=== PATIENT | female | born 1990 | race Caucasian/White ===

== ENCOUNTER 2017-12-12 10:53 | Inpatient (IN) ==
--- NOTE | 2017-12-12 11:25 | ED ---
History of Present Illness Primary Care Physician: No Primary Care Physician History of Present Illness: HPI: 27-year-old at 40+4 weeks presents to the emergency room with regular contractions happening every 5 minutes and lasting for 1-2 minutes that started last night at 8 PM. Patient went to [facility] last night and was discharged stating that she was not in labor. She then went to her OB provider this morning, had a cervical check and said that she was at 4 cm and in active labor. She was sent to the emergency department for admission for active labor. She confirms leakage of fluid that started last night. She confirms a bloody show. Denies any vaginal bleeding. Patient has felt movements. care: Seen by Dr. Carroll starting at 34 weeks. Late care. Patient has had an uncomplicated course. No UTIs. Denies a diagnosis of Gestational diabetes and preeclampsia. 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 PMH: Asthma FHx: Denies any defects, CF, twins, DM Allergies: Latex Meds: vitamins. Albuterol Social history: No tobacco, alcohol or drug abuse. Review of Systems All other systems reviewed negative except as stated in HPI [facility] - Medical History Medical History: Medical History (Last Updated 12/10/17 @ 14:40 by Prince Rawls MD) Asthma Medications and Allergies Allergies Allergy/AdvReac Type Severity Reaction Status Date / Time latex Allergy Severe Rash Verified 12/12/17 12:50 Home Medications Medication Instructions Recorded Confirmed Type albuterol sulfate 1 puff INHALATION Q4-6H PRN 12/10/17 12/12/17 History vit,[id number] 1 tab PO DAILY 12/10/17 12/12/17 History [PNV 29-1] Exam Vital signs: Intake & Output 12/11/17 12/12/17 12/12/17 18:59 06:59 18:59 Weight 106.594 kg Narrative: GENERAL: Well-nourished, well-developed patient. SKIN: Warm and dry. HEAD: Normocephalic and atraumatic. EYES: No scleral icterus. No injection or drainage. CARDIOVASCULAR: Regular rate and rhythm without murmurs, gallops, or rubs. RESPIRATORY: Breath sounds equal bilaterally. No accessory muscle use. ABDOMEN/GI: Abdomen soft, non-tender, bowel sounds present, no rebound, no guarding Gravid to 40 weeks size GENITOURINARY: External Genitalia: intact and normal in appearance Cervix: anterior Dilatation: 5cm Effacement: 100 Station: -2 Presentation: cephalic Membranes: intact Uterine Contractions: [-] FHT's: Category: 1 Baseline: 130 bpm Reactive: yes Variability: moderate Decels: none EXTREMITIES: No cyanosis, +1 edema NEUROLOGICAL: Awake and alert. Normal speech. Results - Labs CBC & Chem 7: 12/12/17 11:35 Assessment and Plan - Diagnosis (1) 41 weeks gestation of Code(s): Z3A.41 - 41 weeks gestation of Status: Acute (2) Active labor at term Status: Acute - Plan 27 year old at 40+4 presents in active labor for . -Cervical check: 5/100/-2 -Admit to labor and delivery: anticipate today. -Epidural for Pain -[place]/EFM -Cervical Checks q4 -GBS Negative. No intervention -discussed with Dr. Montoya Discharge Plan - Physicians Team Primary Care Provider: Primary Care Luz Dye Attending Provider: João Woodard
[2017-12-12] MEDS ORDERED: Sodium Chlor 0.9% Inj 500 ML IV.SIG PRN (11:29)
[2017-12-12] MEDS ORDERED: Naloxone Inj 0.4 MG/ML Vial IV.PUSH PRN (11:29)
[2017-12-12] MEDS ORDERED: Sod Chloride 0.9% Inj 1,000 ML IV.CONT PRN (11:29)
[2017-12-12] MEDS ORDERED: fentaNYL Citrate Inj 100 MCG/2 ML Ampul IV.PUSH PRN ×2 (11:29)
[2017-12-12] MEDS ORDERED: Oxytocin 30 Units/500ml Premix 30 UNITS/500 ML BAG IV.SIG ONE (11:29)
[2017-12-12] MEDS ORDERED: Citric Acid/Sodium Citrate Liq 30 ML UDC PO SCH (11:30)
[2017-12-12 12:24] LABS: Baso # (Auto) 0.1 th/mm3 (0.0-0.2); Baso % (Auto) 0.5 % (0.0-2.0); Eos % (Auto) 0.2 % (0.0-4.0); Hematocrit 38.5 % (35.0-46.0); Hemoglobin 12.2 gm/dL (11.6-15.3); Lymph # (Auto) 1.6 th/mm3 (1.0-4.8); Lymph % (Auto) 10.2 % (9.0-44.0); Mean Corpuscular HGB Conc 31.7 % (32.0-36.0); Mean Corpuscular Hemoglobin 23.7 pg (27.0-34.0); Mean Corpuscular Volume 74.6 fL (80.0-100.0); Mean Platelet Volume 9.2 fL (7.0-11.0); Mono # (Auto) 0.7 th/mm3 (0.0-0.9); Mono % (Auto) 4.5 % (0.0-8.0); Neut # (Auto) 13.1 th/mm3 (1.8-7.7); Neut % (Auto) 84.6 % (16.0-70.0); Platelet Count 419 th/mm3 (150-450); Red Blood Count 5.16 mil/mm3 (4.00-5.30); Red Cell Distribution Width 22.9 % (11.6-17.2); White Blood Count 15.5 th/mm3 (4.0-11.0)
[2017-12-12] MEDS ORDERED: fentaNYL 2MCG-Bupiv 0.125% Epi 150 ML EPIDURAL ONE (12:27)
[2017-12-12] MEDS ORDERED: Lidocaaine 1.5%/Epinephrine 1:200,000 PF Inj 5 ML Amp ONE (12:39)
[2017-12-12] MEDS ORDERED: Lidocaine PF 1% Inj 5 ML Vial ONE (12:39)
[2017-12-12] MEDS ORDERED: Labetalol HCl Inj 100 MG/20 ML Vial IV.PUSH ONE (13:22)
[2017-12-12] MEDS ORDERED: Labetalol HCl Inj 100 MG/20 ML Vial ONE (13:23)
[2017-12-12 15:24] LABS: Alkaline Phosphatase 190 U/L (45-117); Total Protein 7.6 g/dL (6.4-8.2)
[2017-12-12 15:30] LABS: Alanine Aminotransferase 16 U/L (10-53); Albumin 2.7 g/dL (3.4-5.0); Anion Gap 13 meq/L (5-15); Aspartate Aminotransferase 25 U/L (15-37); Blood Urea Nitrogen 8 mg/dL (7-18); Calcium 9.3 mg/dL (8.5-10.1); Carbon Dioxide 22.2 meq/L (21.0-32.0); Chloride 106 meq/L (98-107); Glomerular Filtration Rate Greater Than 89 mL/min (>89); Glucose,Random 79 mg/dL (74-106); Sodium 141 meq/L (136-145); Uric Acid 6.6 mg/dl (2.6-6.0)
[2017-12-12] MEDS ORDERED: fentaNYL Citrate Inj 100 MCG/2 ML Ampul EPIDURAL ONE (15:43)
[2017-12-12] MEDS: fentaNYL 2MCG-Bupiv 0.125% Epi 150 ML EPIDURAL PRN ×2 (16:20→23:11)
[2017-12-12] MEDS ORDERED: Oxytocin 30 Units/500ml Premix 30 UNITS/500 ML BAG IV.SIG PRN ×2 (16:27)
--- NOTE | 2017-12-12 16:47 | P.OBLABOR ---
Subjective Interval history: S: Patient seen and examined at bedside. She is lying comfortably, not feeling any contractions. Patient received epidural earlier this morning. Objective Vital Signs: Vital Signs - 8 hr 12/12/17 11:24 12/12/17 11:28 12/12/17 13:10 Temperature 98.7 F Pulse Rate 97 H 85 Respiratory Rate Blood Pressure 162/104 H 157/94 H 12/12/17 14:10 12/12/17 14:55 12/12/17 15:10 Temperature Pulse Rate 91 H 101 H 90 Respiratory Rate Blood Pressure 125/68 118/68 131/97 H 12/12/17 15:25 12/12/17 15:30 12/12/17 16:31 Temperature 98.2 F Pulse Rate 104 H 96 H 97 H Respiratory Rate 18 Blood Pressure 122/86 119/83 Objective: Pelvic Exam: Cervix: anterior Dilatation: 6cm Effacement: 100 Station: 0 Presentation: cephalic Membranes: AROM Uterine Contractions: nondetectable on [employer] Assessment and Plan - Diagnosis (1) 41 weeks gestation of Code(s): Z3A.41 - 41 weeks gestation of Status: Acute (2) Active labor at term Status: Acute - Plan 27 year old at 40+4 admitted in active labor for . -AROM -Cervical Check: 100/0 -EFM/[employer]: Nonresponsive. IUPC Placed. -If no Contractions: Will start Pitocin 2-2-30. -Continue to Monitor. -Anticipate . -Discussed with
[2017-12-12 17:36] LABS: Bacteria,Urine Moderate /hpf; Bilirubin,Urine Negative (Negative); Clarity,Urine Hazy (Clear); Color,Urine Yellow (Yellw/Straw); Glucose,Urine (UA) Negative (Negative); Hyaline Casts,Urine 1 /lpf (0-3); Leukocyte Esterase,Urine Large (Negative); Mucus,Urine Few /lpf (Occasional); Nitrite,Urine Negative (Negative); Specific Gravity,Urine 1.008 (1.002-1.035); Squamous Epithelial Cell,Urine <1 /hpf (0-5)
[2017-12-12 17:37] LABS: Amphetamine Urine With Conf Neg (Neg); Benzodiazepine Urine With Conf Neg (Neg)
[2017-12-13] MEDS ORDERED: Lidocaine 1% Inj 50 ML Vial ONE (03:59)
[2017-12-13] MEDS ORDERED: Acetaminophen 325 MG Tablet PO PRN (04:43)
[2017-12-13] MEDS ORDERED: Bisacodyl 10 MG Supp RECTAL PRN (04:43)
[2017-12-13] MEDS ORDERED: Zolpidem Tartrate 5 MG Tablet PO PRN (04:43)
[2017-12-13] MEDS ORDERED: Naloxone Inj 0.4 MG/ML Vial IV.PUSH PRN (04:43)
[2017-12-13] MEDS ORDERED: Benzocaine 20% Top Spray 60 ML Can TOPICAL PRN (04:43)
[2017-12-13] MEDS ORDERED: Witch Hazel 50%/Glyderin 12.5% 40 Pad Jar RECTAL PRN (04:43)
[2017-12-13] MEDS ORDERED: Oxytocin 30 Units/500ml Premix 30 UNITS/500 ML BAG IV.CONT PRN (04:43)
--- NOTE | 2017-12-13 04:50 | P.OBDELI ---
Weeks Gestation: 40 Patient Started Active Labor: Yes Active Labor Start Date: 12/12/17 Active Labor Start Time: 07:00 Medical Induction of Labor: No Artificial Rupture of Membrane: Yes Artificial ROM Date: 12/12/17 Artificial ROM Time: 15:00 Anesthesia: Epidural, Lidocaine local to perineum, Other Episiotomy: none Vaginal Delivery: Vacuum Presentation: Occiput anterior Nuchal Cord: x1 Delayed Cord Clamping (45 sec): Yes Placenta: Spontaneous delivery Laceration: Vaginal, Perineal, 2 deg Repair: Chromic interrupted, Vicryl interrupted Estimated blood loss (mL): 250 Infant: Female Additional Information: 8/9 3205 gm
--- NOTE | 2017-12-13 07:43 | P.HPOB ---
History of Present Illness Primary Care Physician: No Primary Care Physician History of Present Illness: HPI: 27-year-old at 40+4 weeks presents to the emergency room with regular contractions happening every 5 minutes and lasting for 1-2 minutes that started last night at 8 PM. Patient went to [facility] last night and was discharged stating that she was not in labor. She then went to her OB provider this morning, had a cervical check and said that she was at 4 cm and in active labor. She was sent to the emergency department for admission for active labor. She confirms leakage of fluid that started last night. She confirms a bloody show. Denies any vaginal bleeding. Patient has felt movements. care: Seen by Dr. Carroll starting at 34 weeks. Late care. Patient has had an uncomplicated course. No UTIs. Denies a diagnosis of Gestational diabetes and preeclampsia. 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 PMH: Asthma FHx: Denies any defects, CF, twins, DM Allergies: Latex Meds: vitamins. Albuterol Social history: No tobacco, alcohol or drug abuse. Review of Systems All other systems reviewed negative except as stated [facility] Medical History Medical History: Medical History (Last Updated 12/10/17 @ 14:40 by Prince Rawls MD) Asthma Medications and Allergies Allergies Allergy/AdvReac Type Severity Reaction Status Date / Time latex Allergy Severe Rash Verified 12/12/17 12:50 Home Medications Medication Instructions Recorded Confirmed Type albuterol sulfate 1 puff INHALATION Q4-6H PRN 12/10/17 12/12/17 History vit,[id number] 1 tab PO DAILY 12/10/17 12/12/17 History [PNV 29-1] Exam Vital signs: Intake & Output 12/11/17 12/12/17 12/12/17 18:59 06:59 18:59 Weight 106.594 kg Narrative: GENERAL: Well-nourished, well-developed patient. SKIN: Warm and dry. HEAD: Normocephalic and atraumatic. EYES: No scleral icterus. No injection or drainage. CARDIOVASCULAR: Regular rate and rhythm without murmurs, gallops, or rubs. RESPIRATORY: Breath sounds equal bilaterally. No accessory muscle use. ABDOMEN/GI: Abdomen soft, non-tender, bowel sounds present, no rebound, no guarding Gravid to 40 weeks size GENITOURINARY: External Genitalia: intact and normal in appearance Cervix: anterior Dilatation: 5cm Effacement: 100 Station: -2 Presentation: cephalic Membranes: intact Uterine Contractions: [-] FHT's: Category: 1 Baseline: 130 bpm Reactive: yes Variability: moderate Decels: none EXTREMITIES: No cyanosis, +1 edema NEUROLOGICAL: Awake and alert. Normal speech. Results - Labs CBC & Chem 7: 12/12/17 11:35 Assessment and Plan - Diagnosis (1) 41 weeks gestation of Code(s): Z3A.41 - 41 weeks gestation of Status: Acute (2) Active labor at term Status: Acute - Plan 27 year old at 40+4 presents in active labor for . -Cervical check: 5100/-2 -Admit to labor and delivery: anticipate today. -Epidural for Pain -[place]/EFM -Cervical Checks q4 -GBS Negative. No intervention -discussed with Dr. Montoya
[2017-12-13] MEDS: Senna/Docusate Sodium 8.6/50 MG Tablet PO SCH (08:19)
[2017-12-13] MEDS: Prenatal Vit/Ca/Iron/Folic Acid Tablet PO SCH (08:19)
[2017-12-13] MEDS ORDERED: Ferrous Sulfate 325 MG Tablet PO SCH (09:00)
--- NOTE | 2017-12-13 10:16 | P.PNOB ---
Subjective Interval history: Patient is a 27 year-old delivered at 40 weeks and 4 days. Patient is day 0 after . Patient's pain is well-controlled. Patient reports eating and drinking without any nausea or vomiting. Patient reports minimal bleeding. Patient has not passed gas and had no bowel movements. Patient is walking without lower extremity pain or shortness of breath. Patient reports desire for contraception and breast-feeding. Objective Vital Signs/I&O: Vital Signs 12/12/17 11:24 12/12/17 11:28 12/12/17 13:10 Temperature 98.7 F Pulse Rate 97 H 85 Respiratory Rate Blood Pressure 162/104 H 157/94 H 12/12/17 14:10 12/12/17 14:55 12/12/17 15:10 Temperature Pulse Rate 91 H 101 H 90 Respiratory Rate Blood Pressure 125/68 118/68 131/97 H 12/12/17 15:25 12/12/17 15:30 12/12/17 16:31 Temperature 98.2 F Pulse Rate 104 H 96 H 97 H Respiratory Rate 18 Blood Pressure 122/86 119/83 12/12/17 16:40 12/12/17 16:46 12/12/17 17:01 Temperature Pulse Rate 98 H 100 H 96 H Respiratory Rate Blood Pressure 120/75 120/77 131/58 L 12/12/17 17:30 12/12/17 17:31 12/12/17 17:46 Temperature 98.1 F Pulse Rate 96 H 100 H Respiratory Rate 20 Blood Pressure 142/88 H 131/91 H 12/12/17 18:01 12/12/17 18:16 12/12/17 18:31 Temperature Pulse Rate 117 H 104 H 105 H Respiratory Rate Blood Pressure 131/89 145/88 H 138/76 12/12/17 18:46 12/12/17 19:46 12/12/17 20:01 Temperature Pulse Rate 103 H 111 H 103 H Respiratory Rate Blood Pressure 134/87 136/97 H 139/92 H 12/12/17 20:18 12/12/17 20:29 12/12/17 20:31 Temperature 99.6 F Pulse Rate 107 H 105 H Respiratory Rate 17 Blood Pressure 142/80 H 142/88 H 12/12/17 20:45 12/12/17 21:01 12/12/17 21:30 Temperature Pulse Rate 105 H 115 H 107 H Respiratory Rate Blood Pressure 148/85 H 125/74 140/88 12/12/17 21:46 12/12/17 22:00 12/12/17 22:15 Temperature Pulse Rate 106 H 115 H 107 H Respiratory Rate Blood Pressure 134/85 135/76 134/89 12/12/17 22:28 12/12/17 23:00 12/13/17 00:05 Temperature 98.5 F Pulse Rate 110 H 108 H Respiratory Rate 15 17 Blood Pressure 133/86 151/84 H 12/13/17 00:16 12/13/17 00:30 12/13/17 01:46 Temperature 98.8 F Pulse Rate 116 H 116 H 114 H Respiratory Rate 15 Blood Pressure 159/91 H 159/95 H 154/86 H 12/13/17 02:01 12/13/17 02:16 12/13/17 03:05 Temperature Pulse Rate 116 H 126 H 135 H Respiratory Rate Blood Pressure 113/81 129/87 12/13/17 03:31 12/13/17 03:50 12/13/17 04:07 Temperature Pulse Rate 138 H 126 H 128 H Respiratory Rate Blood Pressure 12/13/17 04:18 12/13/17 04:31 12/13/17 04:46 Temperature 99.1 F Pulse Rate 127 H 115 H 118 H Respiratory Rate 20 20 Blood Pressure 158/90 H 143/73 H 142/80 H 12/13/17 04:51 12/13/17 05:01 12/13/17 05:15 Temperature Pulse Rate 115 H 124 H Respiratory Rate 19 Blood Pressure 116/69 139/76 12/13/17 05:31 12/13/17 05:45 12/13/17 08:00 Temperature 99.0 F Pulse Rate 128 H 112 H Respiratory Rate 14 24 Blood Pressure 147/70 H 145/83 H Intake & Output 12/12/17 12/13/17 12/13/17 18:59 06:59 18:59 Intake Total 1000 / 1000 Balance 1000 / 1000 Weight 106.594 kg Intake: IV 1000 / 1000 LR 1000 mL Inj 1,000 ML @ 125 1000 / 1000 mls/hr IV.CONT .Q8H [facility] Rx#: [id number] Other: Weight On Admission 235 kg Result Diagrams: 12/12/17 11:35 12/12/17 11:35 Objective Remarks: GENERAL: Well-nourished, well-developed patient. CARDIOVASCULAR: Regular rate and rhythm without murmurs, gallops, or rubs. RESPIRATORY: Breath sounds equal bilaterally. No accessory muscle use. ABDOMEN/GI: Abdomen soft, non-tender. Fundus: Firm, non-tender at umbilicus. GENITOURINARY: Light to moderate bleeding. EXTREMITIES: No cyanosis or edema, non-tender, without signs of DVT. 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 Stop: 12/16/17 11:29 Diphtheria/Pertussis/Tetanus Vacc (Boostrix Vaccine Inj) 0.5 ml IM .ONCE ONE Stop: 12/13/17 16:01 Fentanyl Citrate (Fentanyl Inj) 50 mcg IV.PUSH Q1H PRN PRN Reason: Pain Scale 3 - 5 Fentanyl Citrate (Fentanyl Inj) 100 mcg IV.PUSH Q1H PRN PRN Reason: PAIN SCALE 6 TO 10 Last Admin: 12/12/17 12:02 Dose: 100 mcg Oxytocin (Pitocin 30 Units/Ns 500 Ml Premix) 30 units in 500 mls @ 100 mls/hr IV.CONT UNSCH PRN PRN Reason: Heavy bleeding Ibuprofen (Motrin) 800 mg PO Q8H PRN PRN Reason: For Cramping Last Admin: 12/13/17 05:39 Dose: 800 mg Lactulose (Lactulose Liq) 30 ml PO DAILY PRN PRN Reason: SEVERE CONSITIPATION Measles/Mumps/Rubella Vaccine Live (M-M-R Ii Vaccine Inj) 0.5 ml SQ .ONCE ONE Stop: 12/13/17 16:01 Naloxone HCl (Narcan Inj) 0.1 mg IV.PUSH Q2M PRN PRN Reason: for opiate reversal Ondansetron HCl (Zofran Odt) 4 mg PO Q6H PRN PRN Reason: NAUSEA OR VOMITING Oxycodone/Acetaminophen (Percocet 5/325 Mg) 1 tab PO Q4H PRN PRN Reason: PAIN SCALE 3 TO 5 Vit/Calcium/Iron/Folic Ac (Stuartnatal Plus 3) 1 tab PO DAILY [facility] Last Admin: 12/13/17 08:19 Dose: 1 tab Senna/Docusate Sodium (Eva-Colace) 1 tab PO BID [facility] Last Admin: 12/13/17 08:19 Dose: 1 tab Sennosides (Senokot) 17.2 mg PO Q12H PRN PRN Reason: Moderate Constipation Sodium Chloride (Ns Flush) 2 ml IV.FLUSH BID [facility] Last Admin: 12/13/17 08:21 Dose: 2 ml Sodium Chloride (Ns Flush) 2 ml IV.FLUSH PRN PRN PRN Reason: FLUSH AFTER USING IV ACCESS Witch Leyda/Glycerin (Tucks Pads) 1 applicatio RECTAL QID PRN PRN Reason: HEMORRHOIDS Assessment and Plan - Diagnosis (1) 41 weeks gestation of Code(s): Z3A.41 - 41 weeks gestation of Status: Acute (2) Active labor at term Status: Acute - Plan Patient is a 27 year-old delivered at 40 weeks and 4 days. Patient is day 0 after . Continue routine care. Motrin and Percocet when necessary for pain. Encourage OOB Pelvic rest for 6 weeks will need follow-up appointment at that time. appropriately. Anticipate discharge tomorrow Discussed with Dr. Bautista
[2017-12-13] MEDS ORDERED: Measles/Mumps/Rubella Vaccine Inj 0.5 ML Vial SQ ONE (16:00)
[2017-12-13] MEDS ORDERED: Diphtheria/Tetanus/Pertussis Vaccine Inj 0.5 ML Syringe IM ONE (16:00)
[2017-12-14] MEDS: Senna/Docusate Sodium 8.6/50 MG Tablet PO SCH ×2 (08:21→22:46)
[2017-12-14] MEDS: Prenatal Vit/Ca/Iron/Folic Acid Tablet PO SCH (08:21)
[2017-12-14] MEDS ORDERED: medroxyPROGESTERone Acetate Inj 150 MG/ML Syringe IM ONE (08:40)
--- NOTE | 2017-12-14 08:40 | P.PNOB ---
Subjective Interval history: Patient is a 27 year-old delivered at 40 weeks and 4 days. Patient is day 1 after . Patient's pain is well-controlled. Patient reports eating and drinking without any nausea or vomiting. Patient reports minimal bleeding. Patient has passed gas and had no bowel movements. Patient is walking without lower extremity pain or shortness of breath. Patient desires Depo for contraception and is bottle and breast-feeding. Objective Vital Signs/I&O: Vital Signs 12/13/17 15:45 12/13/17 20:00 Temperature 98.3 F 98.5 F Pulse Rate 102 H 114 H Respiratory Rate 21 18 Blood Pressure 140/89 148/97 H Result Diagrams: 12/12/17 11:35 12/12/17 11:35 Objective Remarks: GENERAL: Well-nourished, well-developed patient. CARDIOVASCULAR: Regular rate and rhythm without murmurs, gallops, or rubs. RESPIRATORY: Breath sounds equal bilaterally. No accessory muscle use. ABDOMEN/GI: Abdomen soft, non-tender. Fundus: Firm, non-tender at umbilicus. GENITOURINARY: Light to moderate bleeding. EXTREMITIES: No cyanosis or edema, non-tender, without signs of DVT. 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[facility] Stop: 12/16/17 11:29 Fentanyl Citrate (Fentanyl Inj) 50 mcg IV.PUSH Q1H PRN PRN Reason: Pain Scale 3 - 5 Fentanyl Citrate (Fentanyl Inj) 100 mcg IV.PUSH Q1H PRN PRN Reason: PAIN SCALE 6 TO 10 Last Admin: 12/12/17 12:02 Dose: 100 mcg Oxytocin (Pitocin 30 Units/Ns 500 Ml Premix) 30 units in 500 mls @ 100 mls/hr IV.CONT UNSCH PRN PRN Reason: Heavy bleeding Ibuprofen (Motrin) 800 mg PO Q8H PRN PRN Reason: For Cramping Last Admin: 12/14/17 08:34 Dose: 800 mg Lactulose (Lactulose Liq) 30 ml PO DAILY PRN PRN Reason: SEVERE CONSITIPATION Naloxone HCl (Narcan Inj) 0.1 mg IV.PUSH Q2M PRN PRN Reason: for opiate reversal Ondansetron HCl (Zofran Odt) 4 mg PO Q6H PRN PRN Reason: NAUSEA OR VOMITING Oxycodone/Acetaminophen (Percocet 5/325 Mg) 1 tab PO Q4H PRN PRN Reason: PAIN SCALE 3 TO 5 Vit/Calcium/Iron/Folic Ac (Stuartnatal Plus 3) 1 tab PO DAILY [facility] Last Admin: 12/14/17 08:21 Dose: 1 tab Senna/Docusate Sodium (Eva-Colace) 1 tab PO BID [facility] Last Admin: 12/14/17 08:21 Dose: 1 tab Sennosides (Senokot) 17.2 mg PO Q12H PRN PRN Reason: Moderate Constipation Sodium Chloride (Ns Flush) 2 ml IV.FLUSH BID [facility] Last Admin: 12/14/17 08:19 Dose: Not Given Sodium Chloride (Ns Flush) 2 ml IV.FLUSH PRN PRN PRN Reason: FLUSH AFTER USING IV ACCESS Witch Leyda/Glycerin (Tucks Pads) 1 applicatio RECTAL QID PRN PRN Reason: HEMORRHOIDS Assessment and Plan - Diagnosis (1) 41 weeks gestation of Code(s): Z3A.41 - 41 weeks gestation of Status: Acute (2) Active labor at term Status: Acute - Plan Patient is a 27 year-old delivered at 40 weeks and 4 days. Patient is day 1 after . Continue routine care. Motrin and Percocet when necessary for pain. Encourage OOB Pelvic rest for 6 weeks will need follow-up appointment at that time. appropriately. Contraception: Depo Anticipate discharge tomorrow Discussed with Dr. Bautista
--- NOTE | 2017-12-15 00:48 | P.PNOB ---
Subjective Post day: 2 Interval history: Patient is PPD 2 this morning. I was called to see o/a fever of 101.4 at 20;00 last night. Pt report some dysuria. Denies SOB or chest pain, no LE pain or swelling, she reports some chills earlier in the evening. Moderate lochia. Objective Vital Signs/I&O: Vital Signs 12/14/17 08:00 12/14/17 20:00 12/14/17 22:00 Temperature 98.0 F 101.4 F H 100.0 F H Pulse Rate 109 H 129 H Respiratory Rate 16 18 Blood Pressure 149/84 H 155/85 H 12/15/17 00:00 Temperature 99.7 F H Pulse Rate 108 H Respiratory Rate 22 Blood Pressure 155/92 H Result Diagrams: 12/12/17 11:35 12/12/17 11:35 Objective Remarks: GENERAL: Well-nourished, well-developed patient. CARDIOVASCULAR: Regular rate and rhythm without murmurs, gallops, or rubs. RESPIRATORY: Breath sounds equal bilaterally. No accessory muscle use. ABDOMEN/GI: Abdomen soft, non-tender. Fundus: Firm, non-tender at umbilicus. GENITOURINARY: Light to moderate bleeding. NO CVA tenderness EXTREMITIES: No cyanosis or edema, non-tender, without signs of DVT. 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 [facility] Stop: 12/16/17 11:29 Fentanyl Citrate (Fentanyl Inj) 50 mcg IV.PUSH Q1H PRN PRN Reason: Pain Scale 3 - 5 Fentanyl Citrate (Fentanyl Inj) 100 mcg IV.PUSH Q1H PRN PRN Reason: PAIN SCALE 6 TO 10 Last Admin: 12/12/17 12:02 Dose: 100 mcg Oxytocin (Pitocin 30 Units/Ns 500 Ml Premix) 30 units in 500 mls @ 100 mls/hr IV.CONT UNSCH PRN PRN Reason: Heavy bleeding Ceftriaxone Sodium 1,000 mg/ (Sodium Chloride) 100 mls @ 200 mls/hr IV.SIG Q24H [facility] Ibuprofen (Motrin) 800 mg PO Q8H PRN PRN Reason: For Cramping Last Admin: 12/14/17 22:45 Dose: 800 mg Lactulose (Lactulose Liq) 30 ml PO DAILY PRN PRN Reason: SEVERE CONSITIPATION Naloxone HCl (Narcan Inj) 0.1 mg IV.PUSH Q2M PRN PRN Reason: for opiate reversal Ondansetron HCl (Zofran Odt) 4 mg PO Q6H PRN PRN Reason: NAUSEA OR VOMITING Oxycodone/Acetaminophen (Percocet 5/325 Mg) 1 tab PO Q4H PRN PRN Reason: PAIN SCALE 3 TO 5 Vit/Calcium/Iron/Folic Ac (Stuartnatal Plus 3) 1 tab PO DAILY [facility] Last Admin: 12/14/17 08:21 Dose: 1 tab Senna/Docusate Sodium (Eva-Colace) 1 tab PO BID [facility] Last Admin: 12/14/17 22:46 Dose: 1 tab Sennosides (Senokot) 17.2 mg PO Q12H PRN PRN Reason: Moderate Constipation Sodium Chloride (Ns Flush) 2 ml IV.FLUSH BID [facility] Last Admin: 12/14/17 08:19 Dose: Not Given Sodium Chloride (Ns Flush) 2 ml IV.FLUSH PRN PRN PRN Reason: FLUSH AFTER USING IV ACCESS Witch Leyda/Glycerin (Tucks Pads) 1 applicatio RECTAL QID PRN PRN Reason: HEMORRHOIDS Last Admin: 12/14/17 22:45 Dose: 1 applicatio Assessment and Plan - Diagnosis (1) UTI (urinary tract infection) due to Enterococcus Code(s): N39.0 - Urinary tract infection, site not specified; B95.2 - Enterococcus as the cause of diseases classified elsewhere Status: Acute Plan: Urine culture grew Enetrococcus faecalis. No CVA tenderness. CBC, blood cultures sent. Will start antibiotics based on susceptibility - Plan Patient is a 27 year-old delivered at 40 weeks and 4 days. Patient is day 1 after . Continue routine care. Motrin and Percocet when necessary for pain. Encourage OOB Pelvic rest for 6 weeks will need follow-up appointment at that time. appropriately. Contraception: Depo Anticipate discharge tomorrow Discussed with Dr. Bautista
[2017-12-15 01:47] LABS: Baso # (Auto) 0.1 th/mm3 (0.0-0.2); Baso % (Auto) 0.5 % (0.0-2.0); Eos # (Auto) 0.1 th/mm3 (0.0-0.4); Eos % (Auto) 0.8 % (0.0-4.0); Hemoglobin 9.2 gm/dL (11.6-15.3); Lymph # (Auto) 2.1 th/mm3 (1.0-4.8); Lymph % (Auto) 14.9 % (9.0-44.0); Mean Corpuscular HGB Conc 31.8 % (32.0-36.0); Mean Corpuscular Hemoglobin 23.9 pg (27.0-34.0); Mean Corpuscular Volume 75.1 fL (80.0-100.0); Mean Platelet Volume 8.3 fL (7.0-11.0); Mono # (Auto) 0.9 th/mm3 (0.0-0.9); Mono % (Auto) 6.1 % (0.0-8.0); Neut # (Auto) 10.9 th/mm3 (1.8-7.7); Neut % (Auto) 77.7 % (16.0-70.0); Platelet Count 315 th/mm3 (150-450); Red Blood Count 3.86 mil/mm3 (4.00-5.30); Red Cell Distribution Width 22.6 % (11.6-17.2); White Blood Count 14.1 th/mm3 (4.0-11.0)
[2017-12-15] MEDS ORDERED: Nitrofurantoin Monohydrate-Macrocrystal 100 MG Capsule PO SCH (09:00)
--- NOTE | 2017-12-15 09:29 | P.PNOB ---
Subjective Interval history: Patient is a 27 year-old delivered at 40 weeks and 4 days. Patient is day 2 after . Patient had spiked a fever overnight, was given a dose of Rocephin, and has been afebrile since that event. She denies any fevers or chills since the event. Patient's pain is well-controlled. Patient reports eating and drinking without any nausea or vomiting. Patient reports minimal bleeding. Patient has passed gas and had no bowel movements. Patient is walking without lower extremity pain or shortness of breath. Patient desires Depo for contraception which she will discuss with her OB. She is bottle and breast-feeding. Patient is ready to be discharged home today. Objective Vital Signs/I&O: Vital Signs 12/14/17 20:00 12/14/17 22:00 12/15/17 00:00 Temperature 101.4 F H 100.0 F H 99.7 F H Pulse Rate 129 H 108 H Respiratory Rate 18 22 Blood Pressure 155/85 H 155/92 H 12/15/17 04:00 12/15/17 07:56 12/15/17 07:57 Temperature 97.8 F 98.7 F Pulse Rate 103 H 92 H Respiratory Rate 19 20 Blood Pressure 123/75 140/78 Result Diagrams: 12/15/17 01:20 12/12/17 11:35 Objective Remarks: GENERAL: Well-nourished, well-developed patient. CARDIOVASCULAR: Regular rate and rhythm without murmurs, gallops, or rubs. RESPIRATORY: Breath sounds equal bilaterally. No accessory muscle use. ABDOMEN/GI: Abdomen soft, non-tender, bowel sounds present. Incision: Clean, dry and intact. Fundus: Firm, non-tender at umbilicus. GENITOURINARY: Light to moderate bleeding. EXTREMITIES: No cyanosis or edema, non-tender, without signs of DVT. Medications and IVs: Active Medications Acetaminophen (Tylenol) 650 mg PO Q4H PRN PRN Reason: PAIN SCALE 1 TO 2 Al Hydroxide/Mg Hydroxide (Milk Of Magnesia Liq) 30 ml PO Q12H PRN PRN Reason: Mild Constipation Citric Acid/Sodium Citrate (Sodium Citrate/Citric Acid Liq) 30 ml PO [employer] [facility] Stop: 12/16/17 11:29 Fentanyl Citrate (Fentanyl Inj) 50 mcg IV.PUSH Q1H PRN PRN Reason: Pain Scale 3 - 5 Fentanyl Citrate (Fentanyl Inj) 100 mcg IV.PUSH Q1H PRN PRN Reason: PAIN SCALE 6 TO 10 Last Admin: 12/12/17 12:02 Dose: 100 mcg Oxytocin (Pitocin 30 Units/Ns 500 Ml Premix) 30 units in 500 mls @ 100 mls/hr IV.CONT UNSCH PRN PRN Reason: Heavy bleeding Ibuprofen (Motrin) 800 mg PO Q8H PRN PRN Reason: For Cramping Last Admin: 12/14/17 22:45 Dose: 800 mg Lactulose (Lactulose Liq) 30 ml PO DAILY PRN PRN Reason: SEVERE CONSITIPATION Naloxone HCl (Narcan Inj) 0.1 mg IV.PUSH Q2M PRN PRN Reason: for opiate reversal Nitrofurantoin [facility]roc[facility] ([facility]) [facility] Ondansetron HCl (Zofran Odt) 4 mg PO Q6H PRN PRN Reason: NAUSEA OR VOMITING Oxycodone/Acetaminophen (Percocet 5/325 Mg) 1 tab PO Q4H PRN PRN Reason: PAIN SCALE 3 TO 5 Vit/Calcium/Iron/Folic Ac (Stuartnatal Plus 3) 1 tab PO DAILY [facility] Last Admin: 12/14/17 08:21 Dose: 1 tab Senna/Docusate Sodium (Eva-Colace) 1 tab PO BID [facility] Last Admin: 12/14/17 22:46 Dose: 1 tab Sennosides (Senokot) 17.2 mg PO Q12H PRN PRN Reason: Moderate Constipation Sodium Chloride (Ns Flush) 2 ml IV.FLUSH BID [facility] Last Admin: 12/15/17 05:26 Dose: Not Given Sodium Chloride (Ns Flush) 2 ml IV.FLUSH PRN PRN PRN Reason: FLUSH AFTER USING IV ACCESS Last Admin: 12/15/17 02:00 Dose: 2 ml Witch Leyda/Glycerin (Tucks Pads) 1 applicatio RECTAL QID PRN PRN Reason: HEMORRHOIDS Last Admin: 12/14/17 22:45 Dose: 1 applicatio Assessment and Plan - Diagnosis (1) 41 weeks gestation of Code(s): Z3A.41 - 41 weeks gestation of Status: Acute (2) Active labor at term Status: Acute - Plan Patient is a 27 year-old delivered at 40 weeks and 4 days. Patient is day 1 after . Continue routine care. Motrin and Percocet when necessary for pain. Encourage OOB Pelvic rest for 6 weeks will need follow-up appointment at that time. appropriately. Contraception: Depo Anticipate discharge tomorrow Discussed with Dr. Bautista
--- NOTE | 2017-12-15 09:31 | P.PNOB ---
Subjective Interval history: Patient is a 27 year-old delivered at 40 weeks and 4 days. Patient is day 2 after . Patient had spiked a fever overnight, was given a dose of Rocephin, and has been afebrile since that event. She denies any fevers or chills since the event. Patient's pain is well-controlled. Patient reports eating and drinking without any nausea or vomiting. Patient reports minimal bleeding. Patient has passed gas and had no bowel movements. Patient is walking without lower extremity pain or shortness of breath. Patient desires Depo for contraception which she will discuss with her OB. She is bottle and breast-feeding. Patient is ready to be discharged home today. Objective Vital Signs/I&O: Vital Signs 12/14/17 20:00 12/14/17 22:00 12/15/17 00:00 Temperature 101.4 F H 100.0 F H 99.7 F H Pulse Rate 129 H 108 H Respiratory Rate 18 22 Blood Pressure 155/85 H 155/92 H 12/15/17 04:00 12/15/17 07:56 12/15/17 07:57 Temperature 97.8 F 98.7 F Pulse Rate 103 H 92 H Respiratory Rate 19 20 Blood Pressure 123/75 140/78 Result Diagrams: 12/15/17 01:20 12/12/17 11:35 Objective Remarks: GENERAL: Well-nourished, well-developed patient. CARDIOVASCULAR: Regular rate and rhythm without murmurs, gallops, or rubs. RESPIRATORY: Breath sounds equal bilaterally. No accessory muscle use. ABDOMEN/GI: Abdomen soft, non-tender. Fundus: Firm, non-tender at umbilicus. GENITOURINARY: Light to moderate bleeding. EXTREMITIES: No cyanosis or edema, non-tender, without signs of DVT. Medications and IVs: Active Medications Acetaminophen (Tylenol) 650 mg PO Q4H PRN PRN Reason: PAIN SCALE 1 TO 2 Al Hydroxide/Mg Hydroxide (Milk Of Magnesia Liq) 30 ml PO Q12H PRN PRN Reason: Mild Constipation Citric Acid/Sodium Citrate (Sodium Citrate/Citric Acid Liq) 30 ml PO [employer] [facility] Stop: 12/16/17 11:29 Fentanyl Citrate (Fentanyl Inj) 50 mcg IV.PUSH Q1H PRN PRN Reason: Pain Scale 3 - 5 Fentanyl Citrate (Fentanyl Inj) 100 mcg IV.PUSH Q1H PRN PRN Reason: PAIN SCALE 6 TO 10 Last Admin: 12/12/17 12:02 Dose: 100 mcg Oxytocin (Pitocin 30 Units/Ns 500 Ml Premix) 30 units in 500 mls @ 100 mls/hr IV.CONT UNSCH PRN PRN Reason: Heavy bleeding Ibuprofen (Motrin) 800 mg PO Q8H PRN PRN Reason: For Cramping Last Admin: 12/14/17 22:45 Dose: 800 mg Lactulose (Lactulose Liq) 30 ml PO DAILY PRN PRN Reason: SEVERE CONSITIPATION Naloxone HCl (Narcan Inj) 0.1 mg IV.PUSH Q2M PRN PRN Reason: for opiate reversal Nitrofurantoin Macrocrystals ([facility]bid) [facility] Ondansetron HCl (Zofran Odt) 4 mg PO Q6H PRN PRN Reason: NAUSEA OR VOMITING Oxycodone/Acetaminophen (Percocet 5/325 Mg) 1 tab PO Q4H PRN PRN Reason: PAIN SCALE 3 TO 5 Vit/Calcium/Iron/Folic Ac (Stuartnatal Plus 3) 1 tab PO DAILY [facility] Last Admin: 12/14/17 08:21 Dose: 1 tab Senna/Docusate Sodium (Eva-Colace) 1 tab PO BID [facility] Last Admin: 12/14/17 22:46 Dose: 1 tab Sennosides (Senokot) 17.2 mg PO Q12H PRN PRN Reason: Moderate Constipation Sodium Chloride (Ns Flush) 2 ml IV.FLUSH BID [facility] Last Admin: 12/15/17 05:26 Dose: Not Given Sodium Chloride (Ns Flush) 2 ml IV.FLUSH PRN PRN PRN Reason: FLUSH AFTER USING IV ACCESS Last Admin: 12/15/17 02:00 Dose: 2 ml Witch Leyda/Glycerin (Tucks Pads) 1 applicatio RECTAL QID PRN PRN Reason: HEMORRHOIDS Last Admin: 12/14/17 22:45 Dose: 1 applicatio Assessment and Plan - Diagnosis (1) 41 weeks gestation of Code(s): Z3A.41 - 41 weeks gestation of Status: Acute - Plan Patient is a 27 year-old delivered at 40 weeks and 4 days. Patient is day 2 after . Patient spiked a fever overnight, given 1 dose of Rocephin. Patient has been afebrile since. Denies any fevers night sweats or chills. -UC Positive for enterococcus. -Patient will be sent home on Macrobid 100 mg twice daily for 5 days. -Continue routine care. -Motrin and Percocet when necessary for pain. -Encourage OOB -Pelvic rest for 6 weeks will need follow-up appointment at that time. - appropriately. -Contraception: Depo. Will be discussed with her OB provider in 6 weeks. -Anticipate discharge today -Discussed with Dr. Elmore
[2017-12-15] MEDS: Senna/Docusate Sodium 8.6/50 MG Tablet PO SCH (10:53)
== END 2017-12-15 13:50 | disposition home or self-care (01) ==
LOC: HOBED 10:53 → H2E 11:34 → H1EA 12-13 06:18
PROVIDERS: ADMIT Obstetrics & Gynecology; ATTEND Obstetrics & Gynecology